=== PATIENT | female | born 1955 | race Caucasian/White ===

== ENCOUNTER → 2017-12-13 15:18 | Outpatient (CLI) | payer OTHER, SELFPAY ==
--- NOTE | 2017-12-13 15:20 | BI_ITS ---
MAMMOGRAPHY - BILATERAL SCREENING REASON FOR EXAM: Female, 62 years old. Routine annual screening examination. PERTINENT HISTORY: Sister with breast cancer. TECHNIQUE: Digital bilateral breast gretchen (3D mammographic acquisition) in the CC and MLO projections. 2-D mediolateral oblique (MLO) and craniocaudad (CC) views of both breasts were obtained. CAD: Full Field Digital Mammography with Computer Added Detection was performed. COMPARISON: Comparison is made with prior study dated October 26, 2016 and August 07, 2015. FINDINGS: Breast Composition: There are scattered areas of fibroglandular density. There are no dominant masses or suspicious calcifications. Stable scattered bilateral calcifications. No focal cluster is seen. Stable benign appearing bilateral axillary lymph nodes. No other significant abnormalities are identified. There has been no significant change since the prior study. BI/SCREENING MAMM (CAD), BILAT IMPRESSION: Stable bilateral screening mammogram. Yearly follow-up mammogram recommended. (A) ASSESSMENT CATEGORY: BIRADS Category 2: Benign. A letter regarding these results will be sent to the patient by the facility within 30 days. Approximately 10% of breast cancers are not detected by mammography. A normal mammogram should not delay biopsy of a clinically suspicious abnormality. [id number] Electronically Signed: Martir Presley MD at 8:44 EDT Tel [phone], Service support ,
== END ==
PROVIDERS: Family Provider Family Medicine; PCP Family Medicine; Visit Provider Obstetrics & Gynecology Gynecology
DX: Z12.31 Encounter for screening mammogram for malignant neoplasm of breast (principal)
CPT/HCPCS: 77063; 77067

== ENCOUNTER 2017-12-20 10:00 | Outpatient (RCR) | payer OTHER, SELFPAY ==
--- NOTE | 2017-11-16 10:13 | HP.PTEVAL ---
Patient's Visit Information WIN CAIN is a 62 year old F referred to Physical Therapy by Blayne Rush with a diagnosis of R TKA. Date of Evaluation: 11/11/17 Physical Therapist: Rodolfo Astorga - Visit Plan Frequency: 2-3x /Week Duration: 4-6 Weeks Plan: Start with ROM and functional strengthening. gait progression with least restrictive device. May use modalities- ice/vaso as needed for pain and edema. - Subjective Subjective: Pt. is here today for her initial evaluation with diagnosis of R TKA. DOS: 11/08/17. Pt. arrives using FWW properly. PT. reports I am doing really well. Pt. denies N/T in either LE. She reports being compliant with all icing and exercises at home. NO issues with home access or HEP. Pt. denies fever, chilles or LOB. She reports having 4/10 pain constantly, difficulty sleeping currently. Pt. pleased with progress thus far. She is able to complete most ADLs without issues, but needs to use walker with all mobility, not back to driving yet. Pt. 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 - Pain R knee Pain Intensity (Out of 10): 4 Pain Intensity Range: 3, 6 - Objective POSTURE: Pt. has normal posture in stance with slight L lateral wt. shift. Pt. has normal healing incision, but does have slight redness around incision. Expected redness, but will monitor. PALPATION: Pt. has increased tenderness throughout knee, normal edema 1+ piting in distal LE. Pt. has negative homans sign. NEUROLOGICAL: Pt. has normal neurological signs, normal sensation to light and sharp touch. 2+ achilles DTR bilaterally. Pt. is able to rise on heels and toes without issues. ROM: R knee 0-8-96deg. Tight HS bilaterally. L knee 0-0-123deg. MMT: RLE- ankle 5/5 throughout; knee- ext 3+/5, flexion 4/5; hip- flexion 3/5, abd 3/5, ext 3/5. Core strength- poor+. GAIT: Pt. ambulates with FWW with out LOB, RICHAR. Pt. lacks TKE and decreased knee flexion during swing phase. STAIRS: Pt. is able to negotiate with step to pattern without LOB, 2 HR needed. - Goals Goal 1:: Pt. to be I with HEP. Goal Time Frame: 4-6 Weeks Goal 2:: Pt. to have increased R knee ROM to 0-0-120deg allowing for increased functional mobility. Goal Time Frame: 4-6 Weeks Goal 3:: Pt. to have increased RLE MMT by 1/2 grade of all effected musculature. Goal Time Frame: 4-6 Weeks Goal 4:: Pt. to ambulate without AD unlimited distances without limitations. Goal Time Frame: 4-6 Weeks Goal 5:: Pt. to negotiate 1 flight of steps with 1 HR with reciprocal pattern. Goal Time Frame: 4-6 Weeks - Rehabilitation Potential Physical Therapy Diagnosis: Pt. has signs and symptoms consistent with R knee hypomobility, weakness, difficulty with gait and increased pain S/P R knee total arthroplasty. Pt. would benefit from PT to address above limitations progress back to gait without limitations. Rehabilitation Potential: Excellent - Anticipated Interventions Patient/Client Instruction: Educate patient on: Condition, Plan of Care, Risk Factors, Benefits of Fitness Program For the Purpose of:: To foster healthy habits, To improve decision making, To facilitate caregiver knowledge, To improve self management, To prevent re-injury, To improve ability to perform tasks related to life management, To improve tolerance to ADL's Therapeutic Exercise to Include: Strength training, Power training, Endurance training, Balance training, Body mechanics, Postural training, Flexibilty training, Gait and locomotor training, Passive ROM, Active ROM For the Purpose of:: To decrease pain, To decrease swelling/inflammation, To increase ROM, To improve nutrient delivery to tissue, To increase oxygenation perfusion, To improve muscle performance and motor function, To improve ability to perform ADL's, To improve gait and locomotor functions, To improve health of tissue, To decrease soft tissue restriction, To increase flexibility/ROM, To improve endurance, To improve balance, To improve safety with gait IF ES: Yes Cryotherapy (ice pack, ice massage): Yes Vasopneumatic device: Yes For the Purpose of:: To decrease pain, To decrease swelling/inflammation, To increase ROM Thank you for the opportunity to evaluate your patient. For Medicare and Medicare HMO plans, please review the plan of care and approve it. It will need to be FAXED BACK to us at [phone] for Medicare purposes. Please let me know if there are questions or concerns regarding this plan of care. Physician Signature: Date:
--- NOTE | 2018-01-04 13:04 | HP.PTDCSUM ---
HP - PT D/C Summary It has been my pleasure to treat WIN CAIN under orders from Blayne Rsuh, for the diagnosis of R TKA for a total of 16 visit(s). Discharge Date: 12/20/17 Please see the following information for a summary of their discharge status. - Subjective Subjective: Pt. reports following up with her physician who was pleased with progress. He wants her to continue to work on motion as tolerated. Pt. pleased. Pt. plans on doing a consistent health and wellness program focus on knee stability and ROM. - Pain R knee Pain Intensity (Out of 10): 0 - Overall Improvement % Improvement: 85 - Objective Objective/Function: ROM- 0-0-113deg. Passively. Pt. is able to achieve TKE , but is tight wtih flexion. Pt. is improving. MMT- RLE- ankle 5/5 throughout; knee- ext 4+/5, flexion 4+/5; hip- flexion 4+/5, abd 4/5, ext 4+/5. GAIT: pt. ambulates without AD, she does have decreaed knee flexion during swing phase, but is improving. STAIRS: Pt. is mai to complete with reciprocal patten, but does have slight lateral lean with ascending with RLE. - Goals Goal 1:: Pt. to be I with HEP. Goal Progress: Goal Met Goal 2:: Pt. to have increased R knee ROM to 0-0-120deg allowing for increased functional mobility. Goal Progress: Progressing Goal 3:: Pt. to have increased RLE MMT by 1/2 grade of all effected musculature. Goal Progress: Goal Met Goal 4:: Pt. to ambulate without AD unlimited distances without limitations. Goal Progress: Goal Met Goal 5:: Pt. to negotiate 1 flight of steps with 1 HR with reciprocal pattern. Goal Progress: Goal Met - Plan Plan: Pt. to be DC from PT to HEP at this point in time. - D/C Information Discharge Comments: Pt. was seen for her rehab after her R TKA. Pt. progressed as expected, but does continue to have tightnes with knee flexion, but is improving. Pt. has imrpoved strength and general mobility. Pt. will be DC from PT to HEP at this point in time. If there are questions or concerns regarding this patient's physical therapy, please feel free to call me at [phone]. Thank you for the referral of this patient. Sincerely, Rodolfo Astorga
== END 2017-12-20 19:00 | disposition home or self-care (01) ==
LOC: PT 10:00
PROVIDERS: Family Provider Family Medicine; PCP Family Medicine; Visit Provider Orthopaedic Surgery
DX: Z98.890 Other specified postprocedural states (principal); Z96.651 Presence of right artificial knee joint
CPT/HCPCS: 97016; 97110; 97140; 97161; 97162

== ENCOUNTER → 2019-01-02 | Outpatient (CLI) | payer OTHER, SELFPAY ==
--- NOTE | 2019-01-02 12:03 | BI_ITS ---
MAMMOGRAPHY - BILATERAL SCREENING REASON FOR EXAM: Female, 63 years old. Routine annual screening examination. PERTINENT HISTORY: Sister with breast cancer. TECHNIQUE: Digital bilateral breast fahad (3D mammographic acquisition) in the CC and MLO projections. 2-D mediolateral oblique (MLO) and craniocaudad (CC) views of both breasts were obtained. CAD: Full Field Digital Mammography with Computer Added Detection was performed. COMPARISON: Comparison is made with prior study dated December 13, 2017 and October 26, 2016. FINDINGS: Breast Composition: There are scattered areas of fibroglandular density. There are no dominant masses or suspicious calcifications. Stable scattered benign appearing bilateral calcifications. Stable fat-containing bilateral axillary lymph nodes. No other significant abnormalities are identified. There has been no significant change since the prior study. BI/SCREEN MAMM (CAD) W/FAHAD BILAT IMPRESSION: Stable bilateral screening mammogram. Yearly follow-up mammogram recommended. (A) ASSESSMENT CATEGORY: BIRADS Category 2: Benign. A letter regarding these results will be sent to the patient by the facility within 30 days. Approximately 10% of breast cancers are not detected by mammography. A normal mammogram should not delay biopsy of a clinically suspicious abnormality. [id number] Pending Final Proof Editing
== END | disposition home or self-care (01) ==
LOC: OPBI 12:00
PROVIDERS: Family Provider Family Medicine; PCP Family Medicine; Referring Provider Obstetrics & Gynecology Gynecology; Visit Provider Obstetrics & Gynecology Gynecology
DX: Z12.31 Encounter for screening mammogram for malignant neoplasm of breast (principal)
CPT/HCPCS: 77063; 77067

== ENCOUNTER → 2020-01-09 10:29 | Outpatient (CLI) | payer OTHER, SELFPAY ==
--- NOTE | 2020-01-09 10:32 | BI_ITS ---
MAMMOGRAPHY - BILATERAL SCREENING REASON FOR EXAM: Female, 64 years old. Routine annual screening examination. PERTINENT HISTORY: Sister with breast cancer. Personal history of melanoma. TECHNIQUE: Digital bilateral breast fahad (3D mammographic acquisition) in the CC and MLO projections. 2-D mediolateral oblique (MLO) and craniocaudad (CC) views of both breasts were obtained. CAD: Full Field Digital Mammography with Computer Added Detection was performed. COMPARISON: Comparison is made with prior study dated 01/02/2019 and 12/13/2017. FINDINGS: Breast Composition: There are scattered areas of fibroglandular density. There are no dominant masses or suspicious calcifications. Stable scattered calcifications in both breasts. Stable small bilateral axillary lymph nodes. No other significant abnormalities are identified. There has been no significant change since the prior study. BI/SCREEN MAMM (CAD) W/FAHAD BILAT IMPRESSION: Stable bilateral screening mammogram. Yearly follow-up mammogram recommended. (A) ASSESSMENT CATEGORY: BIRADS Category 2: Benign. A letter regarding these results will be sent to the patient by the facility within 30 days. Approximately 10% of breast cancers are not detected by mammography. A normal mammogram should not delay biopsy of a clinically suspicious abnormality. [id number] Electronically Signed: Martir Presley, at 12:56 EDT , Service support ,
--- NOTE | 2020-01-09 10:34 | BD_ITS ---
STUDY: DUAL ENERGY X-RAY ABSORPTIOMETRY / DXA REASON FOR EXAM: Female, 64 years old. PHOTOGRAPH DEVELOPER-SURGICAL AT 49 YRS OLD -- TAKES THYROID MEDICATION -- TAKES 1200MG CALCIUM + MULTIVITAMIN -- DOES MODERATE AMOUNT OF EXERCISE -- HX OF BILATERAL HIP REPLACEMENTS -- JONATHAN OF 0.5 INCH TECHNIQUE: Bone Mineral Density (BMD) measurements of lumbar spine and left forearm were obtained. COMPARISON: Comparison is made with prior examination dated 09/09/2011. FINDINGS: Lumbar Spine (L1-L4): g/cm2 (1.159) / T-score (-0.1) / Z-score (1.5) Findings are suggestive of normal bone density with a low fracture risk. Left Forearm: g/cm2 (0.836) / T-score (-0.5) / Z-score (1.0) The T-Scores on the most recent prior examination were: Lumbar Spine (L1-L4): There has been worsening of bone density since the previous examination. BD/Dexa Bone Density Study IMPRESSION: The patient is considered normal as outlined below according to World [place] Organization (WHO) criteria with a low fracture risk. There has been worsening of bone density since the previous examination. Reference Information: The T-score is the number of standard deviations above or below the standard which is normal for young adults at their peak bone mineral density. The World Health Organization (WHO) interprets the T-scores as follows: Above -1 Normal bone density Between -1 and -2.5 Osteopenia Equal to / or below -2.5 Osteoporosis As a practical clinical guideline, osteopenia may be graded as follows: Mild -1 through -1.5 Moderate -1.6 through -2.0 Severe -2.1 through -2.4 The Z-score is the number of standard deviations above or below age-matched controls. A Z-score of less than -1.5 would be considered abnormal. References: 1. NIH Osteoporosis and Related Bone Diseases http://www.osteo.org 2. International Society for Clinical Densitometry http://www.iscd.org 3. National Osteoporosis Foundation http://www.nof.org Electronically Signed: Martir Presley, at 13:23 EDT , Service support ,
== END ==
PROVIDERS: PCP Family Medicine; Referring Provider Obstetrics & Gynecology Gynecology; Visit Provider Obstetrics & Gynecology Gynecology
DX: Z78.0 Asymptomatic menopausal state (principal); Z12.31 Encounter for screening mammogram for malignant neoplasm of breast
CPT/HCPCS: 77063; 77067; 77080

== ENCOUNTER → 2020-03-14 09:30 | Outpatient (CLI) | payer OTHER, SELFPAY | PROVIDERS: PCP Family Medicine; Referring Provider Family Medicine; Visit Provider Family Medicine | DX: Z20.828 Contact with and (suspected) exposure to other viral communicable diseases (principal) | CPT/HCPCS: 87635; C9803; U0003 ==

== ENCOUNTER → 2021-01-12 10:33 | Outpatient (CLI) | payer OTHER, SELFPAY ==
--- NOTE | 2021-01-12 10:36 | BI_ITS ---
MAMMOGRAPHY - BILATERAL SCREENING REASON FOR EXAM: Female, 65 years old. Routine annual screening examination. PERTINENT HISTORY: Sister with breast cancer. TECHNIQUE: Digital bilateral breast fahad (3D mammographic acquisition) in the CC and MLO projections. 2-D mediolateral oblique (MLO) and craniocaudad (CC) views of both breasts were obtained. CAD: Full Field Digital Mammography with Computer Added Detection was performed. COMPARISON: Comparison is made with prior study 01/09/2020 and 01/02/2019. FINDINGS: Breast Composition: There are scattered areas of fibroglandular density. There are no dominant masses or suspicious calcifications. Stable scattered calcifications in both breasts. Stable benign-appearing bilateral axillary lymph nodes. No other significant abnormalities are identified. There has been no significant change since the prior study. BI/SCRN MAMM (CAD)W/FAHAD BILAT IMPRESSION: Stable bilateral screening mammogram. Yearly follow-up mammogram recommended. (A) ASSESSMENT CATEGORY: BIRADS Category 2: Benign. A letter regarding these results will be sent to the patient by the facility within 30 days. Approximately 10% of breast cancers are not detected by mammography. A normal mammogram should not delay biopsy of a clinically suspicious abnormality. [id number] Electronically Signed: Martir Presley MD at 11:52 EDT , Service support ,
== END ==
PROVIDERS: PCP Internal Medicine; Referring Provider Obstetrics & Gynecology Gynecology; Visit Provider Obstetrics & Gynecology Gynecology
DX: Z12.31 Encounter for screening mammogram for malignant neoplasm of breast (principal)
CPT/HCPCS: 77063; 77067

== ENCOUNTER 2021-02-26 15:00 | Outpatient (RCR) | payer OTHER, SELFPAY ==
--- NOTE | 2021-01-09 15:12 | HP.PTEVAL ---
Patient's Visit Information WIN CAIN is a 65 year old F referred to Physical Therapy by TAYLER HAYNES with a diagnosis of L total knee revision. Date of Evaluation: 01/09/21 Physical Therapist: Reyes Leal, PT, ATC - Visit Plan Frequency: 2-3x /Week Duration: 4-6 Weeks Plan: L knee PROM/Mobs, stretching and strengthening, balance and proprio, core strengthening, bike, and HEP - Subjective DOS: 01/06/21. Pt reports she had her L TKA performed in 2013. Pt reports things went well, but notes a few years ago she began to experience Patellar pain and had to replace her patella at that time. Pt notes she is in very little pain today. 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 Pt is very glad to have had the surgery at this time. Pt reports she is very active and likes to hike, and notes prior to this surgery, she was limited from all that type of activity. No L LE tingling or numbness at this time. No sleep difficulty with the use of pain meds. 1/10 pain at rest, 3/10 pain at worst. Pt reports the most pain after sitting for a long period of time and then standing up. Pt reports she has been using a cane for ambulation, but switches to a WW when she gets tired. - Pain R Knee Pain Intensity (Out of 10): 1 Pain Intensity Range: 3 - Objective Neuro: B LE sensation is WNL to light touch. B achilles reflex= 2/3. ROM: R knee 0-5-110, L knee 0-17-80. MMT: R knee 5/5 throughout. L knee 3/5 throughout. Girth at joint line: R knee 40 cm, L knee 44 cm. Gait: - Goals Goal 1:: Decrease L knee pain x 50% to aid with sleep Goal Time Frame: 4-6 Weeks Goal 2:: Increase L knee ROM x 30 degrees to aid with stair negotiation Goal Time Frame: 4-6 Weeks Goal 3:: Increase L knee strength x 1 grade to aid with RTW without limitation Goal Time Frame: 4-6 Weeks Goal 4:: I with HEP Goal Time Frame: 4-6 Weeks - Rehabilitation Potential Physical Therapy Diagnosis: L knee pain, weakness, and limited ROM secondary to L total knee revision Rehabilitation Potential: Good - Anticipated Interventions Patient/Client Instruction: Educate patient on: Condition, Plan of Care For the Purpose of:: To improve self management Therapeutic Exercise to Include: Strength training, Endurance training, Balance training, Flexibilty training, Passive ROM, Active ROM, Dynamic Lumbar Stabilization For the Purpose of:: To decrease pain, To increase ROM, To improve muscle performance and motor function Cryotherapy (ice pack, ice massage): Yes For the Purpose of:: To decrease pain Thank you for the opportunity to evaluate your patient. For Medicare and Medicare HMO plans, please review the plan of care and approve it. It will need to be FAXED BACK to us at [phone] for Medicare purposes. For Medicare only, by signing this I certify the plan of care. Please let me know if there are questions or concerns regarding this plan of care. Physician Signature: Date:
--- NOTE | 2021-06-22 15:33 | HP.PTDCSUM_ITS ---
It has been my pleasure to treat WIN CAIN referred by TAYLER HAYNES, with the diagnosis of L total knee revision for a total of 15 visit(s). Discharge Date: Please see the following information for a summary of their discharge status. Subjective: No pain this date R Knee Pain Intensity (Out of 10): 0 % Improvement: 95 Objective/Function: L knee pain 0/10. Pt feels 95% improvement at this time. L knee ROM: 0-3-120. R knee MMT: flex= 25 #F, ext= 21 #F. [id number] Goal 1:: Decrease L knee pain x 50% to aid with sleep Goal Progress: Goal Met Goal 2:: Increase L knee ROM x 30 degrees to aid with stair negotiation Goal Progress: Progressing Goal 3:: Increase L knee strength x 1 grade to aid with RTW without limitation Goal Progress: Progressing Goal 4:: I with HEP Goal Progress: Goal Met Plan: Discharge to [facility] If there are questions or concerns regarding this patient's physical therapy, please feel free to call me at [phone]. Thank you for the referral of this patient. Sincerely, Reyes Leal, PT, ATC Balance/Gait/Functional tests - Balance/Special Test Scores Lower Extremity Functional Score: 61
== END 2021-02-26 19:00 | disposition home or self-care (01) ==
LOC: PT 15:00
PROVIDERS: PCP Internal Medicine
DX: M22.42 Chondromalacia patellae, left knee (principal)
CPT/HCPCS: 97110; 97140; 97161; 97164

== ENCOUNTER → 2022-01-04 | Outpatient (CLI) | payer MEDICARE, OTHER, SELFPAY ==
--- NOTE | 2022-01-04 14:53 | BI_ITS ---
MAMMOGRAPHY - BILATERAL SCREENING 3-D TOMOSYNTHESIS REASON FOR EXAM: Female, 66 years old. Annual screening mammogram. PERTINENT HISTORY: History of sister with breast cancer. TECHNIQUE: 2-D mammograms and 3-D Tomosynthesis of the breast (s) were performed. CAD was performed. COMPARISON: 01/12/2021, FINDINGS: The breast composition is almost entirely fat. Stable diffuse scattered benign calcifications and lymph nodes. No dense spiculated masses or suspicious microcalcifications are identified. No architectural distortion is identified. There is no skin thickening or retraction. BI/SCRN MAMM (CAD)W/FAHAD BILAT IMPRESSION: No interval change and no mammographic signs of malignancy. Routine yearly mammograms recommended. ASSESSMENT CATEGORY: BIRADS Category 2: Benign. A letter regarding these results will be sent to the patient by the facility within 30 days. FOLLOW UP RECOMMENDATION: Yearly follow up mammogram recommended. (A) Approximately 10% of breast cancers are not detected by mammography. A normal mammogram should not delay biopsy of a clinically suspicious abnormality. Electronically Signed: Edmund Mcclure MD at 9:52 EDT ,
== END | disposition home or self-care (01) ==
LOC: OPBI 14:50
PROVIDERS: PCP Internal Medicine; Visit Provider Obstetrics & Gynecology Gynecology
DX: Z01.419 Encounter for gynecological examination (general) (routine) without abnormal findings (principal); Z12.31 Encounter for screening mammogram for malignant neoplasm of breast; Z80.3 Family history of malignant neoplasm of breast
CPT/HCPCS: 77063; 77067

== ENCOUNTER → 2022-04-16 | Outpatient (CLI) | payer MEDICARE, OTHER, SELFPAY ==
--- NOTE | 2022-04-16 08:19 | CT_ITS ---
STUDY: CT MAXILLOFACIAL SINUSES REASON FOR EXAM: Female, 66 years old. RECURRENT ACUTE SINUSITIS RADIATION DOSAGE (If Supplied By Facility): CTDIvol = ( 33.06 ) mGy, DLP = ( 825.58 ) mGycm TECHNIQUE: The patient was scanned in a multi detector CT scanner. High resolution axial imaging was performed without the administration of intravenous contrast material. Sagittal and coronal images were reconstructed. Individualized dose optimization techniques were used for this CT. COMPARISON: None. FINDINGS: FRONTAL SINUSES: Normal aeration, without mucosal inflammatory disease. ETHMOIDAL SINUSES: Normal aeration, without mucosal inflammatory disease. MAXILLARY SINUSES: Normal aeration, without mucosal inflammatory disease. SPHENOIDAL SINUSES: Normal aeration, without mucosal inflammatory disease. There is patency of the bilateral maxillary infundibuli with normal uncinate processes, ethmoid bullae, and hiatus semilunaris. Normal bilateral middle turbinates. Normal bilateral inferior turbinates. Normal midline nasal septum. There is patency of the bilateral nasal airways. The visualized osseous structures are normal. The visualized bilateral orbital contents are normal. CT/Sinus/Facial Bone IMPRESSION: Normal CT examination of the maxillofacial sinuses. Electronically Signed: Martir Presley MD at 8:59 EST ,
== END | disposition home or self-care (01) ==
LOC: CT 08:18
PROVIDERS: PCP Internal Medicine; Referring Provider Otolaryngology; Visit Provider Otolaryngology
DX: J01.80 Other acute sinusitis (principal)
CPT/HCPCS: 70486

== ENCOUNTER 2022-11-10 09:30 | Outpatient (RCR) | payer MEDICARE, OTHER, SELFPAY ==
--- NOTE | 2022-09-28 17:16 | HP.PTEVAL_ITS ---
Patient's Visit Information WIN CAIN is a 67 year old F referred to Physical Therapy by Dr. Ene Bravo MD with a diagnosis of cervicalgia. Date of Evaluation: 09/28/22 Physical Therapist: Sp Bhandari, CHRISTEL, OCS, CSCS - Visit Plan Frequency: 2x /Week Duration: 4-6 Weeks Plan: 2x/week for 4-6 weeks for... 1. PROM B shoulder, long arm traction, CFM to B supraspinatus. 2. strength of postural muscles and RC to HEP. 3. pec stretches and postural extension for correction. TENS with ice if sore at rest. - Subjective Has R shoulder pain B and feels knots in deltoid area. Has been there for 6 months plus L >R. Rubbing it with hand helps. Massage helps monthly for a while. 0-6/10 and not sure what causes it, worse sleeping on that side. It will wake her up at night. No neck problems. 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 Exercises: 7 days per week, walking 2-3 miles. Recently started strength training, [employer] 5# weight 30 minutes. 4x/week. has not helped or hurt. Basic ADLS getting done. hooking bra can be painful some days. No numbness or tingling in UE. - Pain shoulder pain Pain Intensity (Out of 10): 3 Pain Intensity Range: 0, 6 Comment: 3/10 most days., - Objective L>R tenderness in supraspinatus insertion but no other tenderness neck or shoulder today. Posture is forward head and protracted tilted forward scapula with limited depressiona nd retraction. + HK test L >R, + neer L, - sulcus, - apprehension, - ext rotation lag B, - drop arm B. AROM B shoulder to 138 flexiona dn tight, otherwise WNL and without pain. elbows and wrists AROM WFL, cervical aROM full and painfree. reflexes 2/3 bi and tri B. Sensation UE WNL to gross light touch B. Strength ext rotation 3+ B, slight pain, IR 4 B, flexiona dn abduction 4-, empty can 4-, no pain. biceps and triceps and wrist ex and thumb extension 4/5 without pain. - c/s compression test. - Balance/Special Test Scores Oswestry Neck Score: 4 - Goals Goal 1:: painfree at rest 100% of time and 1/10 at worst with lifting. Goal Time Frame: 4-6 Weeks Goal 2:: Patient feel 90% better overall and qucikdash score 0 Goal Time Frame: 4-6 Weeks Goal 3:: i appropriate ex to manage condition Goal Time Frame: 4-6 Weeks - Rehabilitation Potential Physical Therapy Diagnosis: Likely supraspinatus impingement B Rehabilitation Potential: Fair - Anticipated Interventions Patient/Client Instruction: Educate patient on: Condition, Plan of Care For the Purpose of:: To decrease pain, To increase ROM, To improve nutrient delivery to tissue, To improve muscle performance and motor function, To increase tolerance to activity/condition/position, To improve ability of physical actions for home/community/work/leisure Therapeutic Exercise to Include: Strength training, Flexibilty training, Scapular Strength/Stabilization For the Purpose of:: To decrease pain, To decrease swelling/inflammation, To improve muscle performance and motor function, To increase tolerance to activity/condition/position Manual Therapy Techniques to Include: Trigger point massage, Passive ROM, Soft t issue mobilization For the Purpose of:: To decrease pain, To decrease swelling/inflammation, To increase ROM, To improve nutrient delivery to tissue, To improve muscle perform ance and motor function TENS: Yes Thermo therapy (hot pack): Yes For the Purpose of:: To decrease pain, To decrease swelling/inflammation, To increase ROM, To improve nutrient delivery to tissue Thank you for the opportunity to evaluate your patient. For Medicare and Medicare HMO plans, please review the plan of care and approve it. It will need to be FAXED BACK to us at [phone] for Medicare purposes. For Medicare only, by signing this I certify the plan of care. Please let me know if there are questions or concerns regarding this plan of care. Physician Signature: Date:
--- NOTE | 2022-11-10 10:13 | HP.PTDCSUM ---
It has been my pleasure to treat WIN CAIN referred by Dr. Ene Bravo MD, with the diagnosis of cervicalgia for a total of 10 visit(s). Discharge Date: 11/10/22 Please see the following information for a summary of their discharge status. Subjective: I am getting better. I am doing things without pain now that I could not before. Able to sleep without waking constantly now. More activity before aggravation. Digging weeds is easier. Swimming again 15 minutes without issues. 90% better. HEP : warm up ROM movements, does bands [id number], does squats inchworms, clamshell, bugs. shoulder pain Pain Intensity (Out of 10): 0 % Improvement: 90 Objective/Function: Full aROM B shoulders with only transient slight pain end range of flexion and ir. strength is 4/5 and improving without pain. Overall much improved and willing to continue on own. Goal 1:: painfree at rest 100% of time and 1/10 at worst with lifting. Goal Progress: Goal Met Goal 2:: Patient feel 90% better overall and qucikdash score 0 Goal Progress: Progressing Goal 3:: i appropriate ex to manage condition Goal Progress: Goal Met Plan: d/c to HEP Discharge Comments: Pt to continue via HEP and contact doctor if pain returns. If there are questions or concerns regarding this patient's physical therapy, please feel free to call me at [phone]. Thank you for the referral of this patient. Sincerely, Sp Bhandari, DPT, OCS, CSCS Balance/Gait/Functional tests - Balance/Special Test Scores Oswestry Neck Score: 3
== END 2022-11-10 12:39 | disposition home or self-care (01) ==
LOC: PT 09:30
PROVIDERS: PCP Internal Medicine; Referring Provider Internal Medicine; Visit Provider Internal Medicine
DX: M54.2 Cervicalgia (principal)
CPT/HCPCS: 97110; 97140; 97161; 97164

== ENCOUNTER → 2023-01-17 | Outpatient (CLI) | payer MEDICARE, OTHER, SELFPAY ==
--- NOTE | 2023-01-17 09:53 | BI_ITS ---
MAMMOGRAPHY - BILATERAL SCREENING REASON FOR EXAM: Female, 67 years old. Routine annual screening examination. PERTINENT HISTORY: Sister with breast cancer. TECHNIQUE: Digital bilateral breast fahad (3D mammographic acquisition) in the CC and MLO projections. 2-D mediolateral oblique (MLO) and craniocaudad (CC) views of both breasts were obtained. CAD: Full Field Digital Mammography with Computer Added Detection was performed. COMPARISON: Comparison is made with prior study January 04, 2022 and January 12, 2021. FINDINGS: Breast Composition: The breasts are almost entirely fatty. There are no dominant masses or suspicious calcifications. Stable scattered bilateral secretory calcifications. Stable small benign-appearing bilateral axillary lymph nodes. No other significant abnormalities are identified. There has been no significant change since the prior study. BI/SCRN MAMM (CAD)W/FAHAD BILAT IMPRESSION: Stable bilateral screening mammogram. Yearly follow-up mammogram recommended. (A) ASSESSMENT CATEGORY: BIRADS Category 2: Benign. A letter regarding these results will be sent to the patient by the facility within 30 days. Approximately 10% of breast cancers are not detected by mammography. A normal mammogram should not delay biopsy of a clinically suspicious abnormality. [id number] Electronically Signed: Martir Presley MD at 11:15 EDT ,
== END | disposition home or self-care (01) ==
PROVIDERS: PCP Internal Medicine; Referring Provider Obstetrics & Gynecology Gynecology; Visit Provider Obstetrics & Gynecology Gynecology
DX: Z12.31 Encounter for screening mammogram for malignant neoplasm of breast (principal); Z80.3 Family history of malignant neoplasm of breast
CPT/HCPCS: 77063; 77067

== ENCOUNTER → 2024-01-19 | Outpatient (CLI) | payer MEDICARE, OTHER, SELFPAY ==
--- NOTE | 2024-01-19 14:13 | BI_ITS ---
MAMMOGRAPHY - BILATERAL SCREENING REASON FOR EXAM: Female, 68 years old. Routine annual screening examination. PERTINENT HISTORY: Sister with breast cancer. TECHNIQUE: Digital bilateral breast fahad (3D mammographic acquisition) in the CC and MLO projections. 2-D mediolateral oblique (MLO) and craniocaudad (CC) views of both breasts were obtained. CAD: Full Field Digital Mammography with Computer Added Detection was performed. COMPARISON: Comparison is made with prior study January 17, 2023 and January 04, 2022. FINDINGS: Breast Composition: The breasts are almost entirely fatty. There are no dominant masses or suspicious calcifications. Stable scattered bilateral secretory calcifications. Stable fat-containing right axillary lymph node. No other significant abnormalities are identified. There has been no significant change since the prior study. BI/SCRN MAMM (CAD)W/FAHAD BILAT IMPRESSION: Stable bilateral screening mammogram. Yearly follow-up mammogram recommended. (A) ASSESSMENT CATEGORY: BIRADS Category 2: Benign. A letter regarding these results will be sent to the patient by the facility within 30 days. Approximately 10% of breast cancers are not detected by mammography. A normal mammogram should not delay biopsy of a clinically suspicious abnormality. [id number] Electronically Signed: Martir Presley MD at 15:00 EDT ,
== END | disposition home or self-care (01) ==
LOC: OPBI 14:12
PROVIDERS: PCP Internal Medicine; Referring Provider Obstetrics & Gynecology Gynecology; Visit Provider Obstetrics & Gynecology Gynecology
DX: Z12.31 Encounter for screening mammogram for malignant neoplasm of breast (principal); Z80.3 Family history of malignant neoplasm of breast
CPT/HCPCS: 77063; 77067

== ENCOUNTER → 2025-01-28 | Outpatient (CLI) | payer MEDICARE, OTHER, SELFPAY ==
--- NOTE | 2025-01-28 14:58 | BI_ITS ---
EXAM: SCRN MAMM (CAD)W/FAHAD BILAT DATE: 01/28/2025 CLINICAL HISTORY: F, Age 69 y/o , SCREENING Sister with breast cancer. TECHNIQUE: SCRN MAMM (CAD)W/FAHAD BILAT COMPARISON: Prior exam(s) dated January 19, 2024.. FINDINGS: TISSUE DENSITY: There are scattered areas of fibroglandular density. Bilateral Breast Mammographic Findings: No significant masses, calcifications or other abnormalities are identified. Stable bilateral secretory calcifications. Stable benign-appearing bilateral axillary lymph nodes. No suspicious masses, areas of developing architectural distortion, or suspicious calcifications. There has been no significant interval change. BI/SCRN MAMM (CAD)W/FAHAD BILAT IMPRESSION: Stable examination. OVERALL FINAL ASSESSMENT BI-RADS 2: BENIGN RECOMMENDATION: Routine annual follow-up in 1 Year A letter with findings and recommendations will be mailed to the patient. Reading Location: [facility]
== END | disposition home or self-care (01) ==
LOC: OPBI 14:57
PROVIDERS: PCP Internal Medicine; Referring Provider Obstetrics & Gynecology Gynecology; Visit Provider Obstetrics & Gynecology Gynecology
DX: Z12.31 Encounter for screening mammogram for malignant neoplasm of breast (principal); Z80.3 Family history of malignant neoplasm of breast
CPT/HCPCS: 77063; 77067